=== PATIENT | female | born 1950 | race Caucasian/White ===

== ENCOUNTER 2018-09-30 13:25 | Emergency (ER) | payer MEDICARE, OTHER ==
--- NOTE | 2018-09-30 17:40 | PDOC ---
Rapid Medical Evaluation Medical Evaluation: Allergies Allergy/AdvReac Type Severity Reaction Status Date / Time No Known Drug Allergies Allergy Verified 03/18/16 07:12 09/30/18 17:37 I performed a brief in-person evaluation in this patient. Chief complaint: Itchy rash to face. No new foods/medications/detergents. Recently visited daughter in ICU. Pertinent physical exam findings: Scattered hives to face. No oropharyngeal edema. Clear lungs. I have ordered the following: None Patient will proceed to the ED for further evaluation. Discharge Disposition - Diagnosis Rash - Referrals - Patient Instructions - Post Discharge Activity
[2018-09-30 17:41] VITALS: BP 145/73; PULSE 72; TEMP 98.3; BMI 32.3
[2018-09-30] MEDS ORDERED: diphenhydrAMINE HCL 25 MG CAPSULE (FP) PO ONE ×2 (18:07→18:13)
[2018-09-30] MEDS ORDERED: predniSONE 20 MG TABLET (UD) PO ONE (18:07)
[2018-09-30] MEDS ORDERED: RANITIDINE HCL 150 MG TABLET (FP) PO ONE (18:07)
--- NOTE | 2018-09-30 18:11 | PDOC ---
History of Present Illness - General Chief Complaint: Allergic Reaction Stated Complaint: ALLEGRIC REACTION Time Seen by Provider: 09/30/18 17:54 History Source: Patient Exam Limitations: No Limitations - History of Present Illness Initial Comments: 09/30/18 18:03 HISTORY OF PRESENT ILLNESS: This 67-year-old woman denies medical history presents emergency department for evaluation of rash to her face since waking up today. Patient reports the rash is itchy. Patient has not taken anything for her rash. She denies any shortness of breath, difficulty breathing, difficulty swallowing, drooling, throat itching, changes any cosmetics or cleaning products. Patient reports she has not eaten anything since approximately 12:00 yesterday afternoon as his daughter is in the intensive care unit and she is too stressed to eat. No recent travel or sick contacts. PAST MEDICAL HISTORY: Denies past medical history SURGICAL HISTORY: Denies ALLERGIES: unknown medication and peanuts REVIEW OF SYSTEMS General/Constitutional: Denies fever or chills. Denies weakness, weight change. HEENT: Denies change in vision. Denies ear pain or discharge. Denies sore throat. Cardiovascular: Denies chest pain or shortness of breath. Respiratory: Denies cough, wheezing, or hemoptysis. Gastrointestinal: Denies nausea, vomiting, diarrhea or constipation. Denies rectal bleeding. Genitourinary: Denies dysuria, frequency, or change in urination. Musculoskeletal: Denies joint or muscle swelling or pain. Denies neck or back pain. Skin and breasts: see HPI Neurologic: Denies headache, vertigo, loss of consciousness, or loss of sensation. Psychiatric: Denies depression or anxiety. Endocrine: Denies increased thirst. Denies abnormal weight change. Hematologic/Lymphatic: Denies anemia, easy bleeding, or history of blood clots. Allergic/Immunologic: Denies hives or skin allergy. Denies latex allergy. PHYSICAL EXAM General Appearance: Well-appearing, appropriately dressed. No apparent distress , no intoxication. HEENT: EOMI, PERRLA, normal ENT inspection, normal voice, TMs normal, pharynx normal. No conjunctival pallor. No photophobia, scleral icterus. Neck: Supple. Trachea midline. No tenderness, rigidity, carotid bruit, stridor , lymphadenopathy, or thyromegaly. Respiratory/Chest: Lungs CTAB. No shortness of breath, chest tenderness, respiratory distress, accessory muscle use. No crackles, rales, rhonchi, stridor , wheezing, dullness Cardiovascular: RRR. S1, S2. No JVD, murmur, bradycardia, tachycardia. Gastrointestinal/Abdominal: Normal bowel sounds. Abdomen soft, non-distended. No tenderness or rebound tenderness. No organomegaly, pulsatile mass, guarding, hernia, hepatomegaly, splenomegaly. Integumentary: Scattered raised pruritic pink wheals present to face. Neurologic: [employer] rep II-XII intact. Fully oriented, alert. Appropriate mood/affect. Motor strength 5/5. No appreciable EOM palsy, facial droop or sensory deficit. Past History - Past Medical History Allergies/Adverse Reactions: Allergies Allergy/AdvReac Type Severity Reaction Status Date / Time No Known Drug Allergies Allergy Verified 03/18/16 07:12 Home Medications: Ambulatory Orders Aspirin [ASA -] 325 mg PO DAILY 07/05/14 Atorvastatin Ca [Lipitor] 20 mg PO HS 07/05/14 Lipase/Protease/Amylase [Zenpep Dr 3,000 Unit Capsule] 20,000 each PO TID Metoprolol Succinate [Toprol XL -] 25 mg PO DAILY 03/14/16 Duloxetine HCl 30 mg PO DAILY 06/16/16 Hydrochlorothiazide [Hctz -] 12.5 mg PO DAILY 06/16/16 Memantine HCl [Namenda -] 5 mg PO DAILY 06/16/16 Pantoprazole Sodium 40 mg PO DAILY 06/16/16 Anemia: No Asthma: No Cancer: No Cardiac Disorders: No CVA: No COPD: No CHF: No Dementia: No Diabetes: No GI Disorders: Yes (GERD) Disorders: No HTN: Yes Hypercholesterolemia: Yes Liver Disease: No Seizures: No Thyroid Disease: No - Surgical History Appendectomy: Yes Cholecystectomy: Yes Orthopedic Surgery: Yes ([employer] KNEE REPLACEMENT) - Suicide/Smoking/Psychosocial Hx Smoking Status: No Smoking History: Unknown if ever smoked Number of Cigarettes Smoked Daily: 0 Hx Alcohol Use: No Drug/Substance Use Hx: No Substance Use Type: None *Physical Exam - Vital Signs Last Vital Signs Temp Pulse Resp BP Pulse Ox 98.3 F 72 20 145/73 99 09/30/18 17:35 09/30/18 17:35 09/30/18 17:35 09/30/18 17:35 09/30/18 17:35 Moderate Sedation - Procedure Monitoring Vital Signs: Procedure Monitoring Vital Signs Temperature 98.3 F 09/30/18 17:35 Pulse Rate 72 09/30/18 17:35 Respiratory Rate 20 09/30/18 17:35 Blood Pressure 145/73 09/30/18 17:35 O2 Sat by Pulse Oximetry (%) 99 09/30/18 17:35 Medical Decision Making - Medical Decision Making 09/30/18 18:06 A/P: 67-year-old woman with urticaria to face No respiratory distress, wheezing, stridor or drooling noted No oropharyngeal edema present. Patient denies nausea or vomiting with normal abdominal exam Benadryl 50 mg orally now Prednisone 60 mg orally now Zantac 150mg orally now Discharge home 09/30/18 18:08 *DC/Admit/Observation/Transfer Diagnosis at time of Disposition: Urticaria - Discharge Dispostion Disposition: HOME Condition at time of disposition: Fair Decision to Admit order: No - Referrals Referrals: Darryl Greene MD [Primary Care Provider] - - Patient Instructions Additional Instructions: Rest, drink lots of fluids: Teas, water, soups Continue antihistamines daily until pollen season is over; Zyrtec, Claritin, Stefania during the daytime and Benadryl at nighttime as will make sleepy Consider following up with an supervisor dyer/raspberry checker for skin testing and possible allergy shots Return to emergency department for worsened symptoms, fevers, dehydration - Post Discharge Activity
[2018-09-30] MEDS ORDERED: predniSONE 20 MG TABLET (UD) ONE (18:13)
[2018-09-30] MEDS ORDERED: RANITIDINE HCL 150 MG TABLET (FP) ONE (18:13)
== END 2018-09-30 18:33 | disposition home or self-care (01) ==
LOC: JERFT 13:25
DX: L50.8 Other urticaria (principal); I10 Essential (primary) hypertension; E78.00 Pure hypercholesterolemia, unspecified; K21.9 Gastro-esophageal reflux disease without esophagitis; Z96.653 Presence of artificial knee joint, bilateral
CPT/HCPCS: 99281-25

== ENCOUNTER → 2018-12-22 | Emergency (ER) | payer MEDICARE, OTHER | END | disposition home or self-care (01) | LOC: JER 21:06 ==

== ENCOUNTER 2022-04-30 06:39 | Day surgery (SDC) | payer OTHER ==
[2022-04-09 09:20] VITALS: BMI 25.9
[2022-04-30] MEDS ORDERED: MIDAZOLAM HCL 2 MG/2 ML SINGLE DOSE VIAL ONE (14:45)
[2022-04-30] MEDS ORDERED: PROPOFOL 20 ML ONE (14:45)
[2022-04-30] MEDS ORDERED: ONDANSETRON 4 MG/2 ML VIAL IVPUSH PRN (14:46)
[2022-04-30] MEDS ORDERED: LACTATED RINGERS SOLUTION 1,000 ML IV SCH (15:00)
[2022-04-30] MEDS ORDERED: ceFAZolin SODIUM 1 GM VIAL IVPB ONE (15:15)
[2022-04-30 17:04] VITALS: RESP 18; TEMP 97.8
[2022-04-30 18:53] VITALS: BP 149/64; PULSE 58
== END 2022-04-30 18:20 | disposition home or self-care (01) ==
LOC: JASU-SURG 06:39
PROVIDERS: ATTEND Urology
PROC: 0TBB8ZX Excision of Bladder, Via Natural or Artificial Opening Endoscopic, Diagnostic (ICD-10-PCS; principal; 2022-04-30 15:30)
DX: R31.0 Gross hematuria (principal)
CPT/HCPCS: 88305-TC; 94760

== ENCOUNTER 2022-06-27 10:25 | Emergency (ER) | payer OTHER ==
[2022-06-27 10:52] VITALS: TEMP 97.7; BMI 24.3
[2022-06-27 13:53] LABS: URINE APPEARANCE CLEAR; URINE BILIRUBIN NEGATIVE (NEGATIVE); URINE COLOR YELLOW; URINE GLUCOSE (UA) NEGATIVE (NEGATIVE); URINE KETONE NEGATIVE (NEGATIVE); URINE LEUK ESTERASE NEGATIVE (NEGATIVE); URINE NITRITE NEGATIVE (NEGATIVE); URINE PROTEIN NEGATIVE (NEGATIVE); URINE UROBILINOGEN 0.2 mg/dL (0.2-1.0)
[2022-06-27 13:56] LABS: HEMATOCRIT 43.9 % (32.4-45.2); HEMOGLOBIN 14.4 GM/dL (10.7-15.3); MCH 27.8 pg (25.7-33.7); MCHC 32.7 g/dl (32.0-36.0); MEAN CELL VOLUME 85.1 fl (80-96); MEAN PLT VOLUME 8.7 fl (7.5-11.1); PLATELET COUNT 282 10^3/uL (134-434); RBC 5.16 M/mm3 (3.60-5.2); RDW 13.6 % (11.6-15.6); WHITE BLOOD COUNT 6.3 K/mm3 (4.0-10.0)
[2022-06-27 14:10] LABS: CALCIUM 9.9 mg/dL (8.5-10.1)
[2022-06-27 14:12] LABS: ALBUMIN 3.9 g/dl (3.4-5.0); BLOOD UREA NITROGEN 13.6 mg/dL (7-18)
[2022-06-27 14:16] LABS: TOT PROT 7.7 g/dl (6.4-8.2)
[2022-06-27 14:32] LABS: BILIRUBIN,TOTAL 0.6 mg/dL (0.2-1); CREATININE 0.8 mg/dL (0.55-1.3)
[2022-06-27 16:26] VITALS: BP 123/55; PULSE 60; RESP 16
== END 2022-06-27 16:47 | disposition home or self-care (01) ==
LOC: JER 10:25
DX: R42 Dizziness and giddiness (principal)
CPT/HCPCS: 0241U-QW; 36415; 70450-TC; 71046-TC-FY; 80053; 81003; 84484; 85027; 87086; 93005; 93010; 99285-25

== ENCOUNTER 2022-08-01 09:49 | Emergency (ER) | payer OTHER ==
[2022-08-01 10:09] VITALS: BMI 24.1
[2022-08-01] MEDS ORDERED: METOCLOPRAMIDE HCL INJECTION 10 MG/2 ML VIAL IVPB ONE (10:51)
[2022-08-01] MEDS ORDERED: LACTATED RINGERS SOLUTION 1000 ML INFUS.BAG IV ONE (10:51)
[2022-08-01] MEDS ORDERED: ACETAMINOPHEN 1000 MG/100 ML BAG IVPB ONE (10:51)
[2022-08-01] MEDS ORDERED: ACETAMINOPHEN INJECTION 100 ML IVPB ONE (11:22)
[2022-08-01] MEDS ORDERED: METOCLOPRAMIDE HCL INJECTION 10 MG/2 ML VIAL ONE (11:22)
[2022-08-01 11:47] LABS: BASO % 1.2 % (0-2.0); EOS % 3.1 % (0-4.5); HEMATOCRIT 39.8 % (32.4-45.2); HEMOGLOBIN 13.4 GM/dL (10.7-15.3); LYMPH % 35.1 % (8-40); MCH 28.6 pg (25.7-33.7); MCHC 33.5 g/dl (32.0-36.0); MEAN CELL VOLUME 85.3 fl (80-96); MEAN PLT VOLUME 8.6 fl (7.5-11.1); MONO % 7.4 % (3.8-10.2); NEUT % 53.2 % (42.8-82.8); PH,URINE 6.5 (5.0-8.0); PLATELET COUNT 255 10^3/uL (134-434); RBC 4.67 M/mm3 (3.60-5.2); RDW 14.1 % (11.6-15.6); URINE APPEARANCE CLEAR; URINE BILIRUBIN NEGATIVE (NEGATIVE); URINE COLOR YELLOW; URINE GLUCOSE (UA) NEGATIVE (NEGATIVE); URINE KETONE NEGATIVE (NEGATIVE); URINE LEUK ESTERASE NEGATIVE (NEGATIVE); URINE NITRITE NEGATIVE (NEGATIVE); URINE PROTEIN NEGATIVE (NEGATIVE); URINE UROBILINOGEN 0.2 mg/dL (0.2-1.0); WHITE BLOOD COUNT 5.4 K/mm3 (4.0-10.0)
[2022-08-01 11:52] LABS: INR 1.03 (0.83-1.09); PROTHROMBIN TIME (PATIENT) 11.8 SEC (9.7-13.0)
[2022-08-01 11:55] LABS: ACTIVATED PTT 34.7 SECONDS (25.2-36.5)
[2022-08-01 12:17] LABS: MAGNESIUM 2.1 mg/dL (1.8-2.4)
[2022-08-01 13:02] VITALS: BP 109/68; PULSE 57; RESP 16; TEMP 98.6
[2022-08-01 14:02] LABS: CALCIUM 9.5 mg/dL (8.5-10.1)
[2022-08-01 14:03] LABS: ALBUMIN 3.6 g/dl (3.4-5.0); BLOOD UREA NITROGEN 13.6 mg/dL (7-18)
[2022-08-01 14:06] LABS: CREATININE 0.8 mg/dL (0.55-1.3)
[2022-08-01 14:13] LABS: BILIRUBIN,TOTAL 0.7 mg/dL (0.2-1)
== END 2022-08-01 14:29 | disposition home or self-care (01) ==
LOC: JER 09:49
PROC: 3E033GC Introduction of Other Therapeutic Substance into Peripheral Vein, Percutaneous Approach (ICD-10-PCS; principal; 2022-08-01)
DX: R42 Dizziness and giddiness (principal); G43.909 Migraine, unspecified, not intractable, without status migrainosus
CPT/HCPCS: 0241U-QW; 36415; 70450-TC; 71045-TC-FY; 80053; 81003; 83690; 83735; 83880; 84484; 85025; 85610; 85730; 86850; 86900; 86901; 87086; 93005; 93010; 96374; 96375; 99285-25

== ENCOUNTER 2023-09-14 09:42 | Emergency (ER) | payer OTHER ==
[2023-09-14 10:09] VITALS: BP 127/69; PULSE 65; RESP 18; TEMP 98.1; BMI 25.7
[2023-09-14] MEDS ORDERED: METHOCARBAMOL 500 MG TABLET ONE (10:48)
[2023-09-14] MEDS ORDERED: LIDOCAINE 4% PATCH TP ONE (10:48)
[2023-09-14] MEDS ORDERED: KETOROLAC TROMETHAMINE 30 MG/1 ML VIAL ONE (10:48)
[2023-09-14] MEDS: KETOROLAC TROMETHAMINE 30 MG/1 ML VIAL IM ONE (10:53)
[2023-09-14] MEDS: METHOCARBAMOL 500 MG TABLET PO ONE (10:53)
[2023-09-14] MEDS: LIDOCAINE 5% TOPICAL PATCH TP ONE (10:53)
[2023-09-14] MEDS ORDERED: ACETAMINOPHEN 325 MG TABLET (FP) ONE (12:47)
[2023-09-14] MEDS: ACETAMINOPHEN 325 MG TABLET (FP) PO ONE (12:50)
== END 2023-09-14 14:45 | disposition home or self-care (01) ==
LOC: JER 09:42
PROC: 3E0233Z Introduction of Anti-inflammatory into Muscle, Percutaneous Approach (ICD-10-PCS; principal; 2023-09-14)
DX: S00.83XA Contusion of other part of head, initial encounter (principal); M54.50 Low back pain, unspecified; R91.1 Solitary pulmonary nodule; W18.39XA Other fall on same level, initial encounter
CPT/HCPCS: 70450-TC; 70486-TC; 72125-TC; 72128-TC; 72131-TC; 72170-TC-FY; 73502-TC-LT-FY; 73562-TC-RT-FY; 96372; 99284-25

== ENCOUNTER 2024-02-04 03:52 | Day surgery (SDC) | payer OTHER ==
[2024-02-02 12:25] VITALS: BMI 25.1
[2024-02-04] MEDS ORDERED: BUPIVACAINE HCL/PF 0.75% 10 ML VIAL ONE (07:24)
[2024-02-04] MEDS ORDERED: LIDOCAINE HCL/PF 1% SDV 5ML VIAL ONE (07:24)
[2024-02-04] MEDS: LIDOCAINE HCL 1% PRESERVATIVE FREE - 30ML VIAL IJ ONE (09:16)
[2024-02-04] MEDS: BUPIVACAINE HCL/PF 0.75% 10 ML VIAL NR ONE (09:16)
[2024-02-04 09:46] VITALS: RESP 18
[2024-02-04 10:28] VITALS: BP 162/68; PULSE 61; TEMP 98.2
[2024-02-04] MEDS ORDERED: ACETAMINOPHEN 500 MG TABLET (FP) PO PRN (15:16)
== END 2024-02-04 10:29 | disposition home or self-care (01) ==
LOC: JASU-SURG 03:52
PROVIDERS: ATTEND Pain Medicine Pain Medicine
PROC: 3E0T33Z Introduction of Anti-inflammatory into Peripheral Nerves and Plexi, Percutaneous Approach (ICD-10-PCS; 2024-02-04)
PROC: 3E0T3BZ Introduction of Anesthetic Agent into Peripheral Nerves and Plexi, Percutaneous Approach (ICD-10-PCS; principal; 2024-02-04 08:30)
DX: M47.816 Spondylosis without myelopathy or radiculopathy, lumbar region (principal)
CPT/HCPCS: 76000-TC-FY

== ENCOUNTER 2024-03-31 04:24 | Day surgery (SDC) | payer OTHER ==
[2024-03-28 14:58] VITALS: BMI 25.1
[2024-03-31] MEDS: LIDOCAINE HCL 1% PRESERVATIVE FREE - 30ML VIAL IJ ONE (09:18)
[2024-03-31] MEDS: BUPIVACAINE HCL/PF 0.75% 10 ML VIAL NR ONE (09:23)
[2024-03-31 10:07] VITALS: BP 138/87; PULSE 63; RESP 18; TEMP 97.8
[2024-03-31] MEDS ORDERED: ACETAMINOPHEN 500 MG TABLET (FP) PO PRN (13:22)
== END 2024-03-31 10:35 | disposition home or self-care (01) ==
LOC: JASU-SURG 04:24
PROVIDERS: ATTEND Pain Medicine Pain Medicine
PROC: 3E0T3BZ Introduction of Anesthetic Agent into Peripheral Nerves and Plexi, Percutaneous Approach (ICD-10-PCS; principal; 2024-03-31 08:45)
DX: M47.816 Spondylosis without myelopathy or radiculopathy, lumbar region (principal)
CPT/HCPCS: 76000-TC-FY

== ENCOUNTER 2024-05-06 08:11 | Inpatient (IN) | payer OTHER ==
[2024-05-06 08:18] VITALS: BMI 24.7
[2024-05-06] MEDS ORDERED: LIDOCAINE 4% PATCH TP ONE (08:52)
[2024-05-06] MEDS ORDERED: IBUPROFEN 400 MG TABLET (FP) PO ONE (08:53)
[2024-05-06] MEDS: LIDOCAINE 4% PATCH TP ONE (09:15)
[2024-05-06] MEDS: IBUPROFEN 400 MG TABLET (FP) PO ONE (09:15)
[2024-05-06 09:16] LABS: URINE APPEARANCE CLEAR; URINE BILIRUBIN NEGATIVE (NEGATIVE); URINE COLOR YELLOW; URINE GLUCOSE (UA) NEGATIVE (NEGATIVE); URINE KETONE NEGATIVE (NEGATIVE); URINE LEUK ESTERASE NEGATIVE (NEGATIVE); URINE NITRITE NEGATIVE (NEGATIVE); URINE PROTEIN NEGATIVE (NEGATIVE); URINE UROBILINOGEN 0.2 mg/dL (0.2-1.0)
[2024-05-06] MEDS ORDERED: MORPHINE SULFATE 2 MG/ML SYRINGE ONE (11:02)
[2024-05-06] MEDS: morphine CARPU-JECT 2 MG/1 ML DISP.SYRIN IVPUSH ONE (11:09)
[2024-05-06 11:37] LABS: BASO % 0.9 % (0-2.0); EOS % 3.1 % (0-4.5); HEMATOCRIT 40.2 % (32.4-45.2); HEMOGLOBIN 13.4 GM/dL (10.7-15.3); LYMPH % 32.6 % (8-40); MCH 28.8 pg (25.7-33.7); MCHC 33.4 g/dl (32.0-36.0); MEAN CELL VOLUME 86.3 fl (80-96); MEAN PLT VOLUME 8.4 fl (7.5-11.1); MONO % 6.4 % (3.8-10.2); PLATELET COUNT 263 10^3/uL (134-434); RBC 4.66 M/mm3 (3.60-5.2); RDW 13.3 % (11.6-15.6); WHITE BLOOD COUNT 6.5 K/mm3 (4.0-10.0)
[2024-05-06 11:45] LABS: POTASSIUM 4.2 mmol/L (3.5-5.1)
[2024-05-06 11:55] LABS: CALCIUM 9.5 mg/dL (8.5-10.1)
[2024-05-06 11:56] LABS: ALBUMIN 3.9 g/dl (3.4-5.0); BLOOD UREA NITROGEN 15.4 mg/dL (7-18)
[2024-05-06 11:59] LABS: CREATININE 0.8 mg/dL (0.55-1.3)
[2024-05-06 12:00] LABS: BILIRUBIN,TOTAL 0.7 mg/dL (0.2-1)
[2024-05-06 12:01] LABS: TOT PROT 7.3 g/dl (6.4-8.2)
[2024-05-06] MEDS: LIDOCAINE PATCH REMOVAL MC ONE (20:37)
[2024-05-07] MEDS: KETOROLAC TROMETHAMINE 30 MG/1 ML VIAL IVPUSH PRN (03:16)
[2024-05-07] MEDS: ATORVASTATIN CA 20 MG TABLET (FP) PO SCH (08:59)
[2024-05-07] MEDS: FENOFIBRIC ACID 45 MG CAP PO SCH (08:59)
[2024-05-07] MEDS: PANTOPRAZOLE 40 MG TABLET PO SCH (09:00)
[2024-05-07] MEDS: ENOXAPARIN NA (PORCINE) 40 MG/0.4 ML DISP.SYRIN SQ SCH (09:00)
[2024-05-07] MEDS: ASPIRIN 325 MG TABLET PO SCH (09:00)
[2024-05-07] MEDS: HYDROCHLOROTHIAZIDE 12.5 MG CAPSULE (FP) PO SCH (09:00)
[2024-05-07] MEDS: metoPROLOL SUCCINATE 25 MG TAB.SR.24H (FP) PO SCH (09:00)
[2024-05-07 09:19] LABS: BASO % 0.8 % (0-2.0); EOS % 4.3 % (0-4.5); HEMATOCRIT 37.6 % (32.4-45.2); HEMOGLOBIN 12.9 GM/dL (10.7-15.3); LYMPH % 39.4 % (8-40); MCH 29.2 pg (25.7-33.7); MCHC 34.3 g/dl (32.0-36.0); MEAN CELL VOLUME 85.2 fl (80-96); MEAN PLT VOLUME 8.5 fl (7.5-11.1); MONO % 6.5 % (3.8-10.2); PLATELET COUNT 239 10^3/uL (134-434); RBC 4.41 M/mm3 (3.60-5.2); RDW 13.6 % (11.6-15.6)
[2024-05-07] MEDS ORDERED: FENOFIBRIC ACID 45 MG CAP PO SCH (10:00)
[2024-05-07 11:09] LABS: POTASSIUM 5.2 mmol/L (3.5-5.1)
[2024-05-07 11:14] LABS: CALCIUM 9.6 mg/dL (8.5-10.1)
[2024-05-07 11:15] LABS: ALBUMIN 3.4 g/dl (3.4-5.0); BLOOD UREA NITROGEN 16.1 mg/dL (7-18)
[2024-05-07 11:17] VITALS: RESP 18
[2024-05-07 11:18] LABS: CREATININE 0.8 mg/dL (0.55-1.3)
[2024-05-07 11:20] LABS: BILIRUBIN,TOTAL 0.8 mg/dL (0.2-1); TOT PROT 6.3 g/dl (6.4-8.2)
[2024-05-08] MEDS: POLYETHYLENE GLYCOL (HEALTHYLAX) 3350 17 GM PACKET PO SCH (02:59)
[2024-05-08] MEDS: SENNOSIDES/DOCUSATE COMBO (SENNA PLUS) TABLET (UD) PO SCH (02:59)
[2024-05-08 10:24] LABS: BLOOD UREA NITROGEN 16.5 mg/dL (7-18); CALCIUM 9.1 mg/dL (8.5-10.1)
[2024-05-08 10:25] LABS: ALBUMIN 3.4 g/dl (3.4-5.0)
[2024-05-08 10:28] LABS: CREATININE 0.9 mg/dL (0.55-1.3)
[2024-05-08 10:29] LABS: TOT PROT 6.5 g/dl (6.4-8.2)
[2024-05-08] MEDS: LIDOCAINE 5% TOPICAL PATCH TP SCH (14:52)
[2024-05-08] MEDS: LIPASE/PROTEASE/AMYLASE 36,000 UNIT CAPSULE PO SCH (17:51)
[2024-05-08] MEDS: LIDOCAINE PATCH REMOVAL MC SCH (21:50)
[2024-05-08] MEDS: NAPROXEN 500 MG TABLET PO SCH (21:50)
[2024-05-09] MEDS: ONDANSETRON 4 MG/2 ML VIAL IVPUSH PRN (07:21)
[2024-05-09] MEDS: ASPIRIN 81 MG CHEWABLE TABLETS PO SCH (10:30)
[2024-05-09 14:51] VITALS: BP 125/80; PULSE 61; TEMP 98.4
== END 2024-05-09 14:49 | disposition home or self-care (01) | DRG 552 ==
LOC: JER 08:11 → JERBED 10:56 → OBSVTOIN 16:17 → J5S 21:18
PROVIDERS: ADMIT Internal Medicine; ATTEND Internal Medicine
DX: M54.9 Dorsalgia, unspecified (principal); G89.29 Other chronic pain; I10 Essential (primary) hypertension; E78.5 Hyperlipidemia, unspecified; E78.00 Pure hypercholesterolemia, unspecified; R26.2 Difficulty in walking, not elsewhere classified; K21.9 Gastro-esophageal reflux disease without esophagitis
CPT/HCPCS: 36415; 71045-TC-FY; 72148-TC; 80053; 81003; 85025; 87086; 93005; 93010; 97116-GP; 97161-GP; 99285-25; G0378

== ENCOUNTER 2024-05-13 04:14 | Day surgery (SDC) | payer OTHER ==
[2024-05-12 15:27] VITALS: BMI 25.1
[2024-05-13] MEDS ORDERED: BUPIVACAINE HCL/PF 0.5% (5MG/ML) 10 ML VIAL ONE (07:17)
[2024-05-13] MEDS ORDERED: LIDOCAINE HCL/PF 2% SDV 5ML VIAL ONE (07:17)
[2024-05-13] MEDS ORDERED: DEXAMETHASONE SOD PHOSPHATE 10 MG/1 ML VIAL ONE (07:17)
[2024-05-13] MEDS ORDERED: LIDOCAINE HCL/PF 1% SDV 5ML VIAL ONE (07:17)
[2024-05-13] MEDS ORDERED: BUPIVACAINE HCL/PF 0.75% 10 ML VIAL ONE (07:28)
[2024-05-13] MEDS ORDERED: ACETAMINOPHEN 500 MG TABLET (FP) PO PRN (08:41)
[2024-05-13] MEDS: LIDOCAINE HCL 1% PRESERVATIVE FREE - 30ML VIAL IJ ONE ×2 (10:07)
[2024-05-13] MEDS: DEXAMETHASONE SOD PHOSPHATE 10 MG/1 ML VIAL IVPUSH ONE ×2 (10:09)
[2024-05-13] MEDS: LIDOCAINE HCL/PF 2% SDV 5ML VIAL INF ONE ×2 (10:09)
[2024-05-13 10:41] VITALS: BP 154/62; PULSE 54; RESP 16; TEMP 97.1
== END 2024-05-13 11:15 | disposition home or self-care (01) ==
LOC: JASU-SURG 04:14
PROVIDERS: ATTEND Pain Medicine Pain Medicine
PROC: 015B3ZZ Destruction of Lumbar Nerve, Percutaneous Approach (ICD-10-PCS; principal; 2024-05-13 10:06)
DX: M47.816 Spondylosis without myelopathy or radiculopathy, lumbar region (principal)
CPT/HCPCS: 76000-TC-FY; J1100

== ENCOUNTER 2024-07-07 03:52 | Day surgery (SDC) | payer OTHER ==
[2024-07-06 11:39] VITALS: BMI 25.1
[2024-07-07] MEDS ORDERED: ACETAMINOPHEN 500 MG TABLET (FP) PO PRN (08:35)
[2024-07-07 10:10] VITALS: RESP 18
[2024-07-07 14:05] VITALS: BP 129/70; PULSE 57; TEMP 97.8
== END 2024-07-07 12:41 | disposition home or self-care (01) ==
LOC: JASU-SURG 03:52
PROVIDERS: ATTEND Pain Medicine Pain Medicine
PROC: 015B3ZZ Destruction of Lumbar Nerve, Percutaneous Approach (ICD-10-PCS; principal; 2024-07-07 11:30)
DX: M47.816 Spondylosis without myelopathy or radiculopathy, lumbar region (principal)
CPT/HCPCS: 76000-TC-FY